=== PATIENT | male | born 1960 | race Caucasian/White ===

== ENCOUNTER 2022-10-02 09:05 | Emergency (ER) | payer MEDICAID ==
[~2022-10-02] VITALS: Ht 172.7 cm; Wt 81.6 kg
[2022-10-02 09:20] VITALS: BP 135/68
[2022-10-02] MEDS ORDERED: IBUP-1953 PO (09:50)
[2022-10-02] MEDS ORDERED: LIDO30AD10 TP (09:50)
[2022-10-02] MEDS ORDERED: IBUPROFEN 600 MG TABLET ONE (09:59)
[2022-10-02] MEDS ORDERED: IBUPROFEN 600 MG TABLET PO ONE (10:00)
--- NOTE | 2022-10-02 10:50 | NUR ---
Patient discharged to home in stable condition. Written and verbal after care instructions given. Patient verbalizes understanding of instruction.
== END 2022-10-02 10:50 | disposition home or self-care (01) ==
LOC: ER 09:16
DX: S49.82XA Other specified injuries of left shoulder and upper arm, initial encounter (principal); Z79.899 Other long term (current) drug therapy; W22.8XXA Striking against or struck by other objects, initial encounter; Y93.89 Activity, other specified; Y92.89 Other specified places as the place of occurrence of the external cause; Y99.0 Civilian activity done for income or pay
CPT/HCPCS: 73030-TC

== ENCOUNTER 2024-08-27 07:05 | Emergency (ER) | payer BC, MEDICAID, OTHER ==
[~2024-08-27] VITALS: Ht 172.7 cm; Wt 86.2 kg
[~2024-08-27 07:05] MED LIST: IBUP-1953 PO; LIDO30AD10 TP
[2024-08-27] MEDS ORDERED: CLOT30SO2 TP (08:08)
[2024-08-27 08:18] VITALS: BP 121/70; TEMP 97.6; O2SAT 99
== END 2024-08-27 08:19 | disposition home or self-care (01) ==
LOC: ER 07:12
DX: B35.4 Tinea corporis (principal)